=== PATIENT | male | born 1965 | race Two or more races ===

== ENCOUNTER 2020-11-16 18:20 | Inpatient (IN) | payer OTHER ==
[~2020-11-16] VITALS: Ht 170.2 cm; Wt 78.5 kg
--- NOTE | 2020-11-16 18:34 | NUR ---
pt presents to ed with c/o abd pain in all quadrants and nausea/vomitting at 1400 today. pt a&o, resps even and unlabored, vss, nadn.
--- NOTE | 2020-11-16 18:42 | NUR ---
sarah Lovett at bedside for eval
[2020-11-16] MEDS ORDERED: ONDANSETRON 2MG/ML, 2ML ONE (18:52)
[2020-11-16] MEDS ORDERED: ONDANSETRON 2MG/ML, 2ML IVPush ONE (19:00)
[2020-11-16] MEDS ORDERED: SODIUM CHLORIDE 0.9% 1,000ML IVBOLUS ONE (19:00)
--- NOTE | 2020-11-16 19:03 | NUR ---
PIV placed, labs drawn, pt up to restroom to provide UA with steady gait.
--- NOTE | 2020-11-16 19:14 | NUR ---
pt medicated per order, fluids infusing, ua collected and sent to lab, bebe.
[2020-11-16 19:15] LABS: ALANINE AMINOTRANSFERASE 40 U/L (12-78); ALBUMIN 4.1 g/dL (3.4-5.0); ANION GAP 5 mmol/L (5-15); CALCIUM 8.6 mg/dL (8.5-10.1); CHLORIDE 105 mmol/L (98-107); CREATININE 1.31 mg/dL (0.7-1.3)
[2020-11-16 19:20] LABS: ALKALINE PHOSPHATASE 140 U/L (45-117); BILIRUBIN,TOTAL 0.4 mg/dL (0.2-1.0); TOTAL PROTEIN 8.6 g/dL (6.4-8.2); TROPONIN I < 0.015 ng/mL (0.000-0.045)
[2020-11-16 19:24] LABS: MEAN CORPUSCULAR HGB CONC 33.4 g/dL (33.2-36.2); MEAN PLATELET VOLUME 8.5 fL (7.4-10.4); PLATELET COUNT 224 x10^3/uL (130-400); RED BLOOD COUNT 6.02 x10^6/uL (4.38-5.82); RED CELL DISTRIBUTION WIDTH 13.3 % (9.4-14.8)
[2020-11-16 19:36] LABS: MICROSCOPIC INDICATED
[2020-11-16 20:04] LABS: BAND#(MANUAL) 1.39 x10^3/uL; BANDS%(MANUAL) 8 % (0-7); BASOS#(MANUAL) 0.17 x10^3/uL (0-0.1); BASOS% (MANUAL) 1 % (0-1); EOS#(MANUAL) 0.17 x10^3/uL (0.0-0.4); EOS% (MANUAL) 1 % (1-7); LYMPH#(MANUAL) 1.04 x10^3/uL (1-3.4); LYMPHS% (MANUAL) 6 % (22-44); MONOS#(MANUAL) 0.35 x10^3/uL (0.3-2.7); MONOS% (MANUAL) 2 % (2-9); SEG#(MANUAL) 14.27 x10^3/uL (1.8-6.8); SEGS% (MANUAL) 82 % (42-75)
[2020-11-16 20:05] LABS: <PLATELET ESTIMATE> ADEQUATE; <PLT MORPHOLOGY> NORMAL PLT MORPH; <RBC MORPHOLOGY> NORMAL
--- NOTE | 2020-11-16 20:11 | NUR ---
pt resting in bed, vss, nadn. awaiting lab results and dispo
--- NOTE | 2020-11-16 21:34 | NUR ---
pt resting in bed, a&o, resps even and unlabored, vss, nadn. awaiting CT at this time.
--- NOTE | 2020-11-16 22:01 | NUR ---
pt taken to ct
[2020-11-16] MEDS ORDERED: OMNIPAQUE 350 MG/ML, 100ML BOTTLE ONE (22:30)
--- NOTE | 2020-11-16 23:00 | NUR ---
report taken from break rn, pt resting in bed, bebe sanchez. awaiting MD recheck and dispo
[2020-11-17] MEDS ORDERED: CEFTRIAXONE 1,000 MG in DEXTROSE 5% 50 ML IVPB ONE
--- NOTE | 2020-11-17 00:28 | NUR ---
[facility] at bedside
[2020-11-17] MEDS ORDERED: ONDANSETRON 2MG/ML, 2ML IVPush PRN ×2 (00:30→01:00)
[2020-11-17] MEDS ORDERED: MORPHINE SULFATE 4 MG/ML, 1ML IVPush PRN (00:30)
[2020-11-17] MEDS ORDERED: SODIUM CHLORIDE 0.9% 1,000 ML IV ONE (00:30)
--- NOTE | 2020-11-17 00:35 | NUR ---
report called to receiving RN Madhu in room [id number]
--- NOTE | 2020-11-17 00:46 | NUR ---
pt taken to floor with tech at this time.
[2020-11-17] MEDS ORDERED: DOCUSATE 100 MG CAPSULE PO PRN (01:00)
[2020-11-17] MEDS ORDERED: BISACODYL 10 MG SUPP PR PRN (01:00)
[2020-11-17] MEDS ORDERED: SODIUM CHLORIDE 0.9% 1,000 ML IV SCH ×2 (01:00→09:00)
[2020-11-17] MEDS ORDERED: ENALAPRILAT 1.25 MG/ML, 2ML IVPush PRN (01:00)
[2020-11-17] MEDS ORDERED: POLYETHYLENE GLYCOL 17 GM PACKET PO PRN (01:00)
[2020-11-17] MEDS ORDERED: ONDANSETRON ODT 4 MG PO PRN (01:00)
[2020-11-17] MEDS ORDERED: hydrALAzine 20 MG/ML, 1ML IVPush PRN (01:00)
[2020-11-17] MEDS ORDERED: KETOROLAC 30 MG/1 ML IV PRN (01:00)
[2020-11-17] MEDS ORDERED: ACETAMINOPHEN 325 MG TABLET PO PRN ×2 (01:00→08:30)
[2020-11-17] MEDS ORDERED: morphine SULFATE 10 MG/ML, 1ML IVPush PRN (01:00)
[2020-11-17 01:52] VITALS: BP 114/79
[2020-11-17] MEDS ORDERED: CEFTRIAXONE 1,000 MG in DEXTROSE 5% 50 ML IVPB SCH (02:00)
[2020-11-17] MEDS ORDERED: LISI-606 PO (02:52)
[2020-11-17 06:53] VITALS: BP 123/82
[2020-11-17] MEDS ORDERED: KETOROLAC 30 MG/1 ML IVPush PRN (08:30)
[2020-11-17] MEDS ORDERED: LACTOBACILLUS CHEW TABLET PO SCH (09:00)
[2020-11-17] MEDS ORDERED: TAMSULOSIN 0.4 MG CAP.ER.24H PO SCH (09:00)
[2020-11-17] MEDS ORDERED: FAMOTIDINE 20 MG/2 ML IVPush SCH (09:00)
[2020-11-17] MEDS ORDERED: ONDA4TAB13 PO (12:13)
[2020-11-17] MEDS ORDERED: ACID1TAB7 PO (12:13)
[2020-11-17] MEDS ORDERED: TAMS-11 PO (12:13)
[2020-11-17] MEDS ORDERED: INDO25CA22 PO (12:13)
[2020-11-17] MEDS ORDERED: ATORVASTATIN 10 MG TABLET PO SCH (21:00)
[2020-11-18] MEDS ORDERED: SODIUM CHLORIDE 0.9% 1,000 ML IV SCH (01:00)
== END 2020-11-17 13:51 | disposition home or self-care (01) | DRG 690 ==
LOC: ED 21:14 → EDIP 11-17 00:20 → 4NE 11-17 00:53
PROVIDERS: ADMIT Family Medicine; ATTEND Internal Medicine
DX: N13.6 Pyonephrosis (principal); N17.9 Acute kidney failure, unspecified; D72.825 Bandemia; D75.1 Secondary polycythemia; E78.5 Hyperlipidemia, unspecified; E86.0 Dehydration; F17.210 Nicotine dependence, cigarettes, uncomplicated; I10 Essential (primary) hypertension; R73.03 Prediabetes; Z82.49 Family history of ischemic heart disease and other diseases of the circulatory system; Z82.5 Family history of asthma and other chronic lower respiratory diseases; Z83.3 Family history of diabetes mellitus; Z20.822 Contact with and (suspected) exposure to COVID-19
CPT/HCPCS: 36415; 74177; 80053; 81001; 83605; 83690; 84145; 84484; 85025; 87040; 87086; 87635; 96361; 96374; G0378; J0696; J2405; Q9967; J7030